=== PATIENT | male | born 1965 | race Caucasian/White ===

== ENCOUNTER 2016-10-12 17:08 | Emergency (ER) | payer OTHER ==
[~2016-10-12] VITALS: Ht 182.9 cm; Wt 106.9 kg
[~2016-10-12 17:08] MED LIST: ATIVAN2 MG PO; AUGMENTIN500 MG PO; AUGMENTIN875 MG PO; Geodon IM; OxyCODONE PO; SEROQUEL200 MG PO; TORADOL10 MG PO; WELLBUTRIN XL300 MG PO
[2016-10-12 17:53] LABS: HEMATOCRIT 43.5 % (38.0-50.0); MCH 34.3 PG (29.0-34.0); MCHC 35.4 G/DL (30.0-36.0); MCV 96.9 FL (86-99); MEAN PLAT.VOLUME 9.9 uM^3 (9.0-12.4); PLATELET COUNT 273 K/uL (156-360); RBC DIS.WIDTH-CV 13.6 % (11.8-14.6); RBC DIS.WIDTH-SD 46.2 % (39-53); RED BLOOD COUNT 4.49 M/uL (4.00-5.50); WHITE BLOOD COUNT 6.5 K/uL (4.1-10.2)
[2016-10-12 18:03] LABS: CHLORIDE 104 mEq/L (99-109); POTASSIUM 3.7 mEq/L (3.7-5.4); SODIUM 140 mEq/L (136-147)
[2016-10-12 18:05] LABS: GLUCOSE 100 mg/dL (70-99)
[2016-10-12 18:07] LABS: ANION GAP 10 MEQ/L (2-14); TOTAL BILIRUBIN 0.6 mg/dL (0.0-1.0)
[2016-10-12 18:09] LABS: ALKALINE PHOSPHATASE 75 IU/L (3-129); GFR ESTIMATE (CALCULATED) > 59 mL/min/
[2016-10-12 18:10] LABS: UREA NITROGEN (BUN) 9 mg/dL (9-23)
[2016-10-12 18:12] LABS: LIPASE 13 U/L (1.0-51.0)
[2016-10-12 18:17] LABS: ADD MIUA? NO; BILIRUBIN NEGATIVE; BLOOD NEGATIVE; COLOR YELLOW ((YELLOW)); GLUCOSE (STRIP) NEGATIVE; KETONES NEGATIVE; LEUKOCYTES NEGATIVE; NITRITE NEGATIVE; PROTEIN (STRIP) NEGATIVE; SPECIFIC GRAVITY 1.022 (1.000-1.030); UCUL ADDED? NO; UROBILINOGEN 0.2 MG/DL (0.2-1.0)
[2016-10-12] MEDS ORDERED: PREDNISONE20 MG PO (19:20)
[2016-10-12] MEDS ORDERED: INDOCIN25 MG PO (19:20)
[2016-10-12 19:49] VITALS: BP 122/68
== END 2016-10-12 19:53 | disposition home or self-care (01) ==
LOC: RME 17:08 → EME 17:08 → RME 19:53
DX: R10.9 Unspecified abdominal pain (principal); M54.5 Low back pain; G89.29 Other chronic pain; K76.89 Other specified diseases of liver; R94.5 Abnormal results of liver function studies; J44.9 Chronic obstructive pulmonary disease, unspecified; I10 Essential (primary) hypertension; F17.200 Nicotine dependence, unspecified, uncomplicated
CPT/HCPCS: 72128; 74176; 80053; 81003; 83690; 85027; 99281; 99284; J1885; J2550; J3010; J7512